=== PATIENT | male | born 2000 | race Caucasian/White ===

== ENCOUNTER 2021-07-22 17:39 | Emergency (ER) | payer SELFPAY ==
[2021-07-22 18:52] VITALS: BP 137/91; PULSE 77; RESP 18; TEMP 36.6; O2SAT 99; BMI 24.3
[2021-07-22 18:59] VITALS: BP 137/91; PULSE 77; RESP 18; TEMP 36.6
--- NOTE | 2021-07-22 19:17 | HMH.EDUTC ---
[facility] [place] Clinical Impression: Exposure to COVID-19 virus Disposition: Home, Self-Care Condition on Discharge: Good Instructions: DI for COVID-19 (Suspected or Confirmed ), Preventing the Spread of Coronavirus Discharge Instructions Additional Instructions: Drink plenty of fluids. Take tylenol or ibuprofen for pain or fever. Follow up with your regular doctor. GO TO THE ER FOR ANY WORSENING SYMPTOMS Quarantine until you know the results of your covid-19 test. If it is positive, the health department should call you and give you further instructions about your length of Quarantine and other things. Notify your school or workplace of your results and follow their instructions regarding return to work/school. Referrals: Provider,Referral, [Primary Care Provider] - Forms: Work/School Release Time of Disposition: 19:21 Medical Decision Making - Medical Records Medical records reviewed: No: I reviewed the patient's medical records. - Allan Inquiry Pt receiving controlled substance: No Vital Signs: 07/22/21 18:52 07/22/21 18:59 Temperature 98 F 98 F Temperature Source Oral Pulse Rate 77 Pulse Rate [Left] 77 Respiratory Rate 18 18 Blood Pressure 137/91 H Blood Pressure [Right Arm] 137/91 H Blood Pressure Mean [Right Arm] 106 02 Sat by Pulse Oximetry 99 Orders (Tests/Meds): ORDERS Category Date Time Status Covid-19 Nasal PCR ([facility]) Routine Lab 07/22/21 18:45 Received [facility] [place] H[place] - General Stated complaint: covid test Time Seen by Provider: 07/22/21 19:18 Mode of Arrival: Ambulatory Source of Information: Patient Description of Symptoms (Recalled from Triage Doc. by RN): covid test. asymptomatic. HEENT Symptoms (Recalled from RN notes): No Resp Symptoms (Recalled from RN notes): No Skin Symptoms (Recalled from RN notes): No MS Symptoms (Recalled from RN notes): No Functional Status (Recalled from RN notes): na - History of Present Illness Provider Complaint: He states that he has been exposed to covid-19 by his [id number] having it and living with him. He denies any specific symptoms, but he states that he hasn't felt good since yesterday. - Worker's Comp Is this a Worker's Comp case?: No [facility] History - Hepatitis A Screen Drug use history?: No High risk sexual behaviors?: No History of sexually transmitted infection?: No Currently employed?: No Childcare worker?: No Do you have indoor plumbing?: Yes Do you have electricity?: Yes Attestation statement:: This patient has been screened for Hepatitis A risk factors. I have reviewed the patient's past medical history: Yes ROS Obtained: Yes All systems reviewed & no additional complaints - Constitutional Constitutional: Reports system reviewed and no additional complaints, except as docu - Eyes Eyes: Reports system reviewed and no additional complaints, except as docu - ENT Ears, Nose, Mouth, and Throat: Reports system reviewed and no additional complaints, except as docu - Cardiovascular Cardiovascular: Reports system reviewed and no additional complaints, except as docu - Respiratory Respiratory: Reports system reviewed and no additional complaints, except as docu - Gastrointestinal Gastrointestingal: Reports: system reviewed and no additional complaints, except as docu Physical Exam - General General appearance: alert, in no apparent distress - Head Head exam: atraumatic, normocephalic, normal inspection - Eye Eye exam: Present: normal appearance, PERRL, EOMI - ENT ENT exam: Present: normal exam, normal oropharynx, mucous membranes moist, TM's normal bilaterally, normal external ear exam - Neck Neck exam: Present: normal inspection, full ROM, trachea midline. Absent: meningismus, lymphadenopathy - Chest Chest inspection: Present: normal inspection, symmetric chest wall rise. Absent: tenderness - Respiratory Respiratory exam: Present: normal lung sounds bilaterally.
--- NOTE | 2021-07-23 19:07 | PC.NURSE ---
patient called for results COVID results, patient was negative
== END 2021-07-22 19:48 | disposition home or self-care (01) ==
PROVIDERS: Emergency Provider Nurse Practitioner Family
DX: Z20.822 Contact with and (suspected) exposure to COVID-19 (principal)
CPT/HCPCS: 99202; G0463; U0003

== ENCOUNTER 2022-02-24 14:40 | Emergency (ER) | payer SELFPAY ==
[2022-02-24 14:47] VITALS: BP 161/100; PULSE 98; RESP 16; TEMP 36.6; O2SAT 100; BMI 24.2
--- NOTE | 2022-02-24 14:51 | CT_ITS ---
FINAL REPORT TECHNIQUE: After the administration of intravenous contrast, axial images were obtained through the abdomen and pelvis by computed tomography. The study was performed with techniques to keep radiation dose as low as reasonably achievable, (ALARA). Individual dose reduction techniques using automated exposure control or adjustment of mA and/or kV according to the patient's size were employed. CLINICAL HISTORY: rlq abd pain FINDINGS: Abdomen: The lung bases are clear. The liver parenchyma is homogeneous. The gallbladder is present. The spleen, pancreas, adrenals and kidneys appear unremarkable. The aorta is normal in caliber. There is no free fluid or adenopathy. There are multiple fluid-filled loops of small bowel measuring at the upper limits of normal. There is no definite obstructive pattern. Pelvis: The appendix is normal. The urinary bladder is unremarkable. There is no free fluid or adenopathy. IMPRESSION: Normal appendix. Fluid filled small bowel loops measuring at the upper limits of normal without a definite obstructive pattern. Reviewed, Interpreted and Dictated by Donnell Aggarwal MD Transcribed by Kurt Andrea Authenticated by Donnell Aggarwal MD on 02/24/2022 04:11:39 PM [facility]
--- NOTE | 2022-02-24 14:53 | HMH.EDGENADL ---
ED Disposition Clinical Impression: Abdominal cramps Diarrhea Qualifiers: Diarrhea type: unspecified type Qualified Code(s): R19.7 - Diarrhea, unspecified Disposition: Home, Self-Care Condition on Discharge: Good Instructions: Diarrhea, Acute Abdominal Pain Prescriptions: Dicyclomine HCl [Bentyl 10mg capsule] 10 mg PO TID PRN #15 cap PRN Reason: Cramping Transmission Status: Received by [facility] #[id number] Referrals: Jim Aranda [Primary Care Provider] - - Critical Care Critical Care Time: No Attestation: On 02/24/22, the high probability of a clinically significant, sudden or life threatening deterioration of the following system(s) required my full and direct attention, intervention and personal management. The time I documented below is in addition to time spent performing reported procedures but includes the following listed in this critical care notation. Medical Decision Making - Medical Records Medical records reviewed: Yes: I reviewed the patient's medical records. - Allan Inquiry Pt receiving controlled substance: No Vital Signs: 02/24/22 14:47 02/24/22 16:30 Temperature 98 F 98 F Temperature Source Oral Oral Pulse Rate 82 Pulse Rate [Left Radial] 98 H Respiratory Rate 16 18 Blood Pressure 140/86 Blood Pressure [Right Arm] 161/100 H Blood Pressure Mean [Right Arm] 120 Blood Pressure Source Automatic Cuff Blood Pressure Position Sitting 02 Sat by Pulse Oximetry 100 Oxygen Delivery Method Room Air Room Air - Lab Data Lab Results 02/24/22 15:00: WBC 9.3, RBC 6.00, Hgb 17.9, Hct 53.8 H, MCV 89.7, MCH 29.9, MCHC 33.3, RDW 13.7, Plt Count 241, MPV 8.2, Neut % (Auto) 88.8 H, Lymph % (Auto) 4.6 L, [place] % (Auto) 5.0, Eos % (Auto) 1.3, Baso % (Auto) 0.3, Neut # (Auto) 8.2 H, Lymph # (Auto) 0.4 L, [place] # (Auto) 0.5, Eos # (Auto) 0.1, Baso # (Auto) 0.0, Total Counted 100, Neutrophils % (Manual) 89 H, Lymphocytes % (Manual) 8 L, Monocytes % (Manual) 3, Platelet Estimate Normal, RBC Morphology Normal 02/24/22 15:00: Sodium 140, Potassium 4.7, Chloride 105, Carbon Dioxide 28, Anion Gap 11.7, BUN 21 H, Creatinine 0.80, Estimated Creat Clear 139, Estimated GFR 121, Est GFR ( Amer) 146, Glucose 88, Calcium 8.8, Total Bilirubin 0.5, AST 32, ALT 32, Alkaline Phosphatase 91, Total Protein 7.5, Albumin 4.4, Globulin 3.1, Albumin/Globulin Ratio 1.4 Result diagrams: 02/24/22 15:00 02/24/22 15:00 Orders (Tests/Meds): ED MEDICATIONS Discontinued Medications Generic Name Dose Route Start Last Admin Trade Name Freq PRN Reason Stop Dose Admin Dicyclomine HCl 20 mg 02/24/22 16:18 02/24/22 16:21 Dicyclomine 10mg Capsule PO 02/24/22 16:19 20 mg ONCE ONE Administration Hydromorphone HCl 1 mg 02/24/22 19:02 02/24/22 16:26 Hydromorphone 2mg/Ml Syringe IV 02/24/22 19:03 1 mg ONCE ONE Administration Sodium Chloride 1,000 mls @ 999 mls/hr 02/24/22 15:00 02/24/22 15:18 Sod Chlor 0.9% 1000ml Bag IV 02/24/22 16:00 999 mls/hr .Q1H1M JESSICA Administration Iopamidol 75 ml 02/24/22 15:13 02/24/22 15:14 Iopamidol-370 (76%);100ml Bottle IV 02/24/22 15:14 75 ml ONCE ONE Administration Morphine Sulfate 4 mg 02/24/22 14:52 02/24/22 15:04 Morphine 4mg/Ml Syringe IV 02/24/22 14:53 4 mg ONCE ONE Administration Ondansetron HCl 8 mg 02/24/22 14:52 02/24/22 15:03 Ondansetron 4mg/2ml Vial IV 02/24/22 14:53 8 mg ONCE ONE Administration Sodium Chloride 10 ml 02/24/22 15:13 02/24/22 15:14 Sodium Chloride 0.9% 10ml Syr (Rad Only) IV 02/24/22 15:14 10 ml ONCE ONE Administration Medical Decision Narrative: reeval, appears well, abd soft, ok with plan to rx and f/u if worse General Adult HPI - General Chief complaint: PAIN Stated complaint: abd pains Time Seen by Provider: 02/24/22 14:45 Mode of Arrival: Ambulatory ([id number]) Limitations: No Limitations Description of Symptoms (Recalled from ER Triage Doc. by RN): pt
[2022-02-24 15:20] LABS: Basophils % 0.3 % (0.1-2.0); Eosinophils # 0.1 K/mm3 (0.0-0.4); Eosinophils % 1.3 % (0.1-12.0); Hematocrit 53.8 % (42.0-52.0); Hemoglobin 17.9 g/dL (14.1-18.0); Lymphocytes # 0.4 K/mm3 (0.7-4.5); Lymphocytes % 4.6 % (10-50); Mean Corpuscular HGB Conc 33.3 g/dL (31.8-35.4); Mean Corpuscular Hemoglobin 29.9 pg (27.0-31.2); Mean Corpuscular Volume 89.7 fl (80-94); Mean Platelet Volume 8.2 fl (7.4-10.4); Monocytes # 0.5 K/mm3 (0.1-1.0); Neutrophils # 8.2 K/mm3 (1.8-7.8); Neutrophils % 88.8 % (37.0-80.0); Platelet Count 241 K/mm3 (142-424); Red Cell Distribution Width 13.7 % (11.5-17.5); White Blood Count 9.3 K/mm3 (4.8-10.8)
[2022-02-24 15:24] LABS: Chloride 105 mmol/L (98-107); MANUAL DIFFERENTIAL MANUAL DIFFERENTIAL (MANUAL DIFF); Potassium 4.7 mmoL/L (3.5-5.1); Sodium 140 mmol/L (136-145)
[2022-02-24 15:26] LABS: Blood Urea Nitrogen 21 mg/dl (9-20); Creatinine Clearance Estimated 139 mL/min (50-200); Estimated Glomerular Filt Rate 121 ml/min (>60); GFR (African American) 146 ML/MIN (>60)
[2022-02-24 15:27] LABS: Alanine Aminotransferase 32 U/L (12-78); Albumin Level 4.4 g/dl (3.5-5.0); Albumin/Globulin Ratio 1.4 (1.1-1.8); Alkaline Phosphatase 91 U/L (38-126); Anion Gap 11.7 mEq/L (5-15); Aspartate Amino Transferase 32 U/L (17-59); Bilirubin,Total 0.5 mg/dl (0.2-1.3); Calcium 8.8 mg/dl (8.4-10.2); Carbon Dioxide 28 mmol/L (22.0-30.0); Globulin 3.1 g/dL (1.3-3.2); Glucose 88 mg/dl (74-100); Total Protein,Serum 7.5 g/dl (6.3-8.2)
[2022-02-24 16:09] LABS: Lymphocytes % 8 % (10-50); Monocytes % 3 % (2-9); Neutrophils % 89 % (42-76); Platelet Estimate Normal; RBC Morphology Normal; Total Cells Counted 100
[2022-02-24 16:30] VITALS: BP 140/86; PULSE 82; RESP 18; TEMP 36.6; O2SAT 99
== END 2022-02-24 16:32 | disposition home or self-care (01) ==
PROVIDERS: Emergency Provider Emergency Medicine; PCP Internal Medicine
DX: R19.7 Diarrhea, unspecified (principal)
CPT/HCPCS: 74177; 80053; 85007; 85025; 96365; 96375; 99284; J2405; Q9967

== ENCOUNTER 2022-10-19 10:33 | Emergency (ER) | payer OTHER, SELFPAY ==
[2022-10-19 12:35] VITALS: BP 116/86; PULSE 71; RESP 18; TEMP 37; O2SAT 98; BMI 25.9
--- NOTE | 2022-10-19 12:58 | EXP.UTC ---
Discharge Plan Disposition Patient Disposition: Home, Self-Care Condition: Good Prescriptions Prescriptions: New ibuprofen 600 mg tablet 600 mg PO Q6HP PRN (Reason: Moderate Pain) Qty: 20 0RF Referrals Follow up/Referrals: Jim Aranda [Primary Care Provider] - See instructions Activity Restrictions/Add. Instructions Additional Instructions/Restrictions: Take medication as prescribed Follow up with Dentist Call today may take you a couple weeks to get in Use dental balls as advised in the [facility] Return if needed Straight to ER if any life threatening symptoms Clinical Impressions Clinical Impression: Dental infection Instructions Patient Instructions: DI for Dental Pain Discharge ED Provider: Angela Ornelas [facility] HPI General Stated complaint: Mouth pain, possible tooth infection Mode of Arrival: Ambulatory Source of Information: Patient Limitations: No Limitations Time Seen by Provider: 10/19/22 12:59 Description of Symptoms (Recalled from Triage Doc. by RN): PATIENT C/O TOOTH ABSCESS TO RIGHT SIDE X 4 DAYS HEENT Symptoms (Recalled from RN notes): Yes Resp Symptoms (Recalled from RN notes): No Skin Symptoms (Recalled from RN notes): No MS Symptoms (Recalled from RN notes): No Functional Status (Recalled from RN notes): WNL History of Present Illness Provider Complaint: Patient states that he has been having pain in his right upper gum area for about 4 days States that he was seen at [facility] and started on antibiotics but still having pain and wanted to see if there was something that he could get for the pain Related Data Previous Rx's Medication Instructions Recorded ibuprofen 600 mg tablet 600 mg PO Q6HP PRN Moderate Pain 10/19/22 #20 tabs Allergies Allergy/AdvReac Type Severity Reaction Status Date / Time No Known Allergies Allergy Verified 02/24/22 14:53 Worker's Comp Is this a Worker's Comp case?: No [facility] Disclaimer: The information contained in this section may have been updated after the patient was seen, as this information can be updated by other users. Medical History (Updated 10/19/22 @ 13:03 by Angela Ornelas APRN) No significant past medical history Social History (Updated 10/19/22 @ 12:52 by Sugey Thompson RN) Smoking Status: Current every day smoker alcohol intake: never current occupational status: other Travel in the last 8 weeks: None ROS Obtained: Yes All systems reviewed & no additional complaints except as documented and Yes Systems reviewed as appropriate & no additional complaints except as documented Constitutional Constitutional: Reports system reviewed and no additional complaints, except as documented and Reports as per HPI ENT Ears, Nose, Mouth, and Throat: Reports system reviewed and no additional complaints, except as documented, Reports as per HPI and Reports dental pain Cardiovascular Cardiovascular: Reports system reviewed and no additional complaints, except as documented and Reports as per HPI Respiratory Respiratory: Reports system reviewed and no additional complaints, except as documented and Reports as per HPI Physical Exam General General appearance: alert and in no apparent distress Expanded ENT Exam TM/Canal exam: Right TM: erythema Teeth exam: Present dental caries and gingival swelling (mild right upper gumline) Respiratory Respiratory exam: Present normal lung sounds bilaterally; Absent respiratory distress or wheezes Cardiovascular Cardiovascular exam: Present regular rate, normal rhythm and normal heart sounds Neurological Exam Neurological exam: Present alert, oriented X3 and normal gait Medical Decision Making Allan Inquiry Pt receiving controlled substance: No Allan was queried for this patient: No Vital Signs: 10/19/22 12:35 Temperature 98.6 F Temperature Source Oral Pulse Rate [Right Brachial] 71 Respiratory Rate 18 Blood Pressure [Right Arm] 116/86 Blood Pressure Mean [Right Arm]
[2022-10-19 13:08] VITALS: BP 116/86; PULSE 71; RESP 18; TEMP 37; O2SAT 98
== END 2022-10-19 13:11 | disposition home or self-care (01) ==
PROVIDERS: Emergency Provider Nurse Practitioner; PCP Internal Medicine
DX: K04.7 Periapical abscess without sinus (principal)
CPT/HCPCS: 99212; G0463

== ENCOUNTER 2024-10-05 21:35 | Emergency (ER) | payer MEDICAID, SELFPAY ==
[2024-10-05 21:36] VITALS: BP 152/91; PULSE 64; RESP 20; TEMP 36.8; O2SAT 98; BMI 23.5
--- NOTE | 2024-10-05 21:37 | ED_ITS ---
<Statement entered by Britta Nicole DO - 10/05/24 22:56> I was consulted by the ETHAN, and we discussed the complexity of the problems being addressed. I approved the treatment and management plan for this patient's care in the emergency department, thus performing a substantive portion of the medical decision making. Britta Nicole DO Discharge Plan Disposition Patient Disposition: Home, Self-Care Condition: Good Prescriptions Prescriptions: New amoxicillin-pot clavulanate 875-125 mg tablet 1 tab PO BID Qty: 20 0RF No Action ibuprofen 600 mg tablet 600 mg PO Q6HP PRN (Reason: Moderate Pain) Qty: 20 0RF Referrals Follow up/Referrals: Provider,Referral, MD [Primary Care Provider] - See instructions Activity Restrictions/Add. Instructions Additional Instructions/Restrictions: Please take antibiotics until they are gone. You will need to see dentistry as soon as possible next week. If you have increasing fever headache or drainage return to the emergency department. Clinical Impressions Clinical Impression: Dental infection Print Language Print Language: Georgian Discharge ED Provider: Britta Nicole General Adult HPI General Chief complaint: Dental/Oral Stated complaint: dental pain Time Seen by Provider: 10/05/24 21:37 History of Present Illness HPI narrative: Patient presents for evaluation of dental pain. Patient has had a dental infection/painful tooth left one of his right upper premolars for at least 2 months . However last 24 hours has become more painful and he has had more swelling in the area. He denies fever headache nausea vomiting drainage. Related Data Previous Rx's ?Medication ?Instructions ?Recorded ibuprofen 600 mg tablet 600 mg PO Q6HP PRN Moderate Pain 10/19/22 #20 tabs amoxicillin 875 mg-potassium 1 tab PO BID #20 tabs 10/05/24 clavulanate 125 mg tablet Allergies Allergy/AdvReac Type Severity Reaction Status Date / Time No Known Allergies Allergy Verified 02/24/22 14:[address] [facility] Disclaimer: The information contained in this section may have been updated after the patient was seen, as this information can be updated by other users. Medical History (Updated 10/05/24 @ 21:48 by VIKTOR Barnes) No significant past medical history Social History (Updated 10/19/22 @ 13:03 by Angela Ornelas APRN) Smoking Status: Current every day smoker alcohol intake: never current occupational status: other Other Medical History Have you received the Flu Vaccine for this season: No Have you received the Pneumonia Vaccine: No ROS Obtained: Yes Systems reviewed as appropriate & no additional complaints except as documented Physical Exam General General appearance: alert and in no apparent distress Respiratory Respiratory exam: Present normal lung sounds bilaterally Cardiovascular Cardiovascular exam: Present regular rate Neurological Exam Neurological exam: Present alert and oriented X3 Medical Decision Making Medical Records Screening: Per USPSTF and CDC recommendations, given the prevalence of disease in our region, it is our hospital?s policy to screen for HIV and viral Hepatitis for all patients aged 18 and over and those with ongoing risk factors. Allan Inquiry Pt receiving controlled substance: No Vital Signs: 10/05/24 21:36 Temperature 98.2 F Temperature Source Oral Pulse Rate [Apical] 64 Respiratory Rate 20 Blood Pressure [Right Arm] 152/91 H Blood Pressure Mean [Right Arm] 111 02 Sat by Pulse Oximetry 98 Oxygen Delivery Method Room Air Orders (Tests/Meds): ED MEDICATIONS Discontinued Medications Generic Name Dose Route Start Last Admin Trade Name Freq PRN Reason Stop Dose Admin Amoxicillin/Clavulanate Potassium 1 each 10/05/24 21:44 Amoxicillin/Clavulanate Potassium 875/125mg Tablet PO 10/05/24 21:45 ONCE ONE Lidocaine HCl 15 ml 10/05/24 21:44 Lidocaine 2% Viscous Yuki 15ml Udc PO 10/05/24 21:45 ONCE ONE Medical Decision Narrative: In summary patient is a 23-year-old male who presents to the emergency department for evaluation of dentalgia. Patient is hemodynamically stable upon arrival, afebrile. Physical exam is remarkable for dental caries in the right sided first premolar. There is no gingival irritation or swelling. Patient has slight fullness of the right cheek but there is no fluctuance or drainage noted. There is no periorbital edema or swelling. Differential diagnosis includes cellulitis versus dental infection etc. initial workup was considered including labs and imaging however patient has no fluctuance or any other red flag signs for deep space abscess.. Initial interventions include dental balls and Augmentin. Given this patient is appropriate for discharge with prescription for the remainder of the Augmentin, instructions to follow-up with dentist as soon as possible for definitive management and strict return precautions. Critical Care Critical Care Time Critical Care Time: No
--- OUTSIDE RECORDS SUMMARY | 2024-10-05 21:44 | XMS_ITS | Encounter Summary ---
Author Organization Healthcare Address [address] [place] [address] Care Team Providers Care Group Fitness Manager Name Role Phone Jim Aranda MD Primary Care Provider [phone] Encounter Details Date Type Department Care Team (Latest Contact Info) Description 10/26/2022 Travel Social History Tobacco Use Types Packs/Day Years Used Date Smoking Tobacco: Never Assessed Sex and Gender Information Value Date Recorded Sex Assigned at Not on file Legal Sex Male 8:47 PM EDT Gender Identity Not on file Sexual Orientation Not on file COVID-19 Exposure Response Date Recorded In the last 10 days, have yo u been in contact with someone who was confirmed or suspected to have Coronavirus/COVID-19? No / Unsure 10/26/2022 9:40 PM EST documented as of this encounter Plan of Treatment Not on file documented as of this encounter Visit Diagnoses Not on filedocumented in this encounter Care Teams Group Fitness Manager Relationship Specialty Start Date End Date Jim Aranda MD [address] [place] [address] PCP - General 03/28/21 documented as of this encounter
--- OUTSIDE RECORDS SUMMARY | 2024-10-05 21:44 | XMS_ITS | Encounter Summary ---
Author Organization Healthcare Address [address] [place], [place] [id number] Care Team Providers Care Press Assistant Name Role Phone Jim Aranda MD Primary Care Provider [phone] Encounter Details Date Type Department Care Team (Late st Contact Info) Description 10/30/2022 1:00 PM EST Office Visit [facility] [address] [place], [place] [phone] Sanjana Martinez, MEET [address] [place], [place] [id number] Social History Tobacco Use Types Packs/Day Years [...] suspected to have Coronavirus/COVID-19? No / Unsure 10/29/2022 2:43 PM EST documented as of this encounter Last Filed Vital Signs Vital Sign Reading Time Taken Comments Blood Pressure 161/97 10/30/2022 1:17 PM EST Pulse 98 10/30/2022 1:17 PM EST Temperature - - Respiratory Rate - - Oxygen Saturation - - Inhaled Oxygen Concentration - - Weight 67.9 kg (149 lb 11.1 oz) 10/30/2022 1:04 PM EST Height 167.6 cm (5' 6 ) 10/30/2022 1:04 PM EST Body Mass Index 24.16 10/30/2022 1:04 PM EST documented in this encounter Miscellaneous Notes * Progress Notes - Sanjana Pérez DMD - 10/30/2022 1:00 PM EST OMS OPERATIVE NOTE Rogelio Castellano [id number] Patient presents to clinic for scheduled surgery -PMH and R/B/A's reviewed, informed consent updated. -Monitors: NIBP, ECG, pulse oximetry, etCO2 -Administered supplemental O2 via nasal cannula. -Vitals: taken pre and post op -A timeout was performed. -Pre-op Diagnosis: Carious teeth # 32 with associated abscess -Post-op Diagnosis: Same -Surgeon: Sanjana Pérez DMD -Procedure: See Below -Anesthesia: N20 DESCRIPTION OF PROCEDURE Immediate pre-incision time-out performed. O2 admin for 5 min preop. N20 titrated up to 50%/ 50% o2. Local anesthesia achieved 3 carps of 2% Lidocaine w/1:100,000 epi Throat screen was placed. [id number] - Extraction of Erupted Teeth # 32 - Using elevators and forceps as indicated, tooth was extracted in total and confirmed. Curettage performed to remove granulation tissue. Sig purulence drained from ext site. Hemostats used on buccal of #32 under periosteum. Surgical site copiously irrigatedwith NS. No sutures indicated. Hemostasis achieved with gauze The patient's airway was never threatened and patient denied any shortness of breath. 5 min of 100%o2 administered. Pt was hemodynamically stable and tolerated the procedure well. Pt reported felt normal. Patient was discharged after the patient met discharge criteria MAS-10. POST-OP Post-operative instructions were given orally and written to patient's escort. Prescriptions: -Peridex 0.12% -OTC IBU 800 mg w/ 500 mg tylenol q6h prn. -finish previously prescribed ABX eKASPER performed and reviewed and potential narcotics abuse discussed with patient prior to prescribing narcotic medication. Follow-Up: F/U: PRN NV: iv sed w/ removal of #1, #15, #16, #17 per other note on 10/29/22 Sanjana Pérez DMD tile edger PGY-1 [facility] Cosigned by Luca Padilla DMD at 11/03/2022 9:30 AM EST Associated attestation - Trey Padilla DMD - 11/03/2022 9:30 AM EST I was present during all critical and figueroa portions of the procedure(s) and immediately available [facility] services the entire duration. See resident note for details. documented in this encounter Plan of Treatment Not on file documented as of this encounter Visit Diagnoses Not on filedocumented in this encounter Care Teams Press Assistant Relationship Specialty Start Date End Date Jim Aranda MD [address] [place], [place] [phone] PCP - General 03/28/21 documented as of this encounter
--- OUTSIDE RECORDS SUMMARY | 2024-10-05 21:44 | XMS_ITS | Encounter Summary ---
Author Organization Healthcare Address [address] [place] [address] Care Team Providers Care Supervisor Inspection Department Name Role Phone Jim Aranda MD Primary Care Provider [phone] Encounter Details Date Type Department Care Team (Late st Contact Info) Description 12/08/2022 Telephone [facility] [address] [place] [phone] Woody Du MD [address] [place], [place] [phone] Social History Tobacco Use Types Packs/Day Years Used Date Smoking Tobacco: Never Assessed Sex and Gender Information Value Date Recorded Sex Assigned at Not on file Legal Sex Male 8:47 PM EDT Gender Identity Not on file Sexual Orientation Not on file documented as of this encounter Miscellaneous Notes * Telephone Encounter - Erinn Davis - 12/08/2022 10:05 AM EST Tried to contact pt to move Fe surgery to a sooner date but no answer or vmoption/kw documented in this encounter Plan of Treatment Not on file documented as of this encounter Visit Diagnoses Not on filedocumented in this encounter Care Teams Supervisor Inspection Department Relationship Specialty Start Date End Date Jim Aranda MD [address] [place] [address] PCP - General 03/28/21 documented as of this encounter
--- OUTSIDE RECORDS SUMMARY | 2024-10-05 21:44 | XMS_ITS | Encounter Summary ---
Author Organization Healthcare Address [address] [place] [address] Care Team Providers Care Senior Software Engineer Analytics Name Role Phone Jim Aranda MD Primary Care Provider [phone] Encounter Details Date Type Department Care Team (Latest Contact Info) Description 10/29/2022 Travel Social History Tobacco Use Types Packs/Day [...] on filedocumented in this encounter Care Teams Senior Software Engineer Analytics Relationship Specialty Start Date End Date Jim Aranda MD [address] [place] [address] PCP - General 03/28/21 documented as of this encounter
--- OUTSIDE RECORDS SUMMARY | 2024-10-05 21:44 | XMS_ITS | Encounter Summary ---
Author Organization Healthcare Address [address] [place] [id number] Care Team Providers Care Seafood Specialist Name Role Phone Jim Aranda MD Primary Care Provider [phone] Reason for Referral * Consultation (Routine) - Closed Specialty Diagnoses / Procedures Referred By Contac t Referred To Contact Oral Surgery Diagnoses Pain, dental Jono Stoner PA [address] [place] [address] Phone: tel: fax: [facility] [address] [place] [address] [address] [place] [address] Phone: tel: Referral ID Status Reason Start Date Expiration Date V isits Requested Visits Authorized [id number] Closed Specialty Services Required 10/27/2022 04/27/2024 1 1 Reason for Visit * Reason Comments Dental Pain Encounter Details Date Type Department Care Team (Late st Contact Info) Description 10/26/2022 10:02 PM EST - 10/27/2022 6:06 AM EST Emergency [facility] [address] [place] [address] Chantel Gilmore MD [address] [place] [address] Pain, dental (Primary Dx); Dental abscess; Tooth pain Discharge Disposition: Home or Self Care Social History Tobacco Use Types Packs/Day Years [...] Sign Reading Time Taken Comments Blood Pressure 137/79 10/27/2022 6:04 AM EST Pulse 78 10/27/2022 6:04 AM EST Temperature 36.9 ??C (98.5 ??F) 10/27/2022 6:04 AM ES T Respiratory Rate 18 10/27/2022 6:04 AM EST Oxygen Saturation 98% 10/27/2022 6:04 AM EST Inhaled Oxygen Concentration - - Weight - - Height - - Body Mass Index - - documented in this encounter Discharge Instructions * Discharge Instructions* Jono Stoner PA - 10/27/2022 5:43 AM EST Freeland as needed for pain Also ibuprofen Do not mix norco with tylneol Follow up with [facility] for surgical evaluation documented in this encounter Medications at Time of Discharge HYDROcodone-acet aminophen (Freeland) 5-325 MG tablet Take 1 tablet by mouth every 4 (four) hours if needed for severe pain. 18 tablet 10/27/2022 clindamycin (Cleocin) 150 MG capsule Take 2 capsules (300 mg total) by mouth 3 (three) times a day for 7 days. 42 capsule 10/27/2022 11/03/2022 documented as of this encounter Miscellaneous Notes * Consults - Fortunato Najera DMD - 10/27/2022 5:34 AM ESTAssociated Order(s): Consult to Dentistry Consult to Dentistry Consult performed by: Fortunato Najera DMD Consult ordered by: VIKTOR Guerrero Reason For Consult Right side dental pain History Of Present Illness Rogelio Castellano is a 21 y.o. male presenting with jaw pain on the lower right side. Pt describes the pain 100/10, but that morphine does provide mild relief. Pt is unable to open more than 1cm. Pt reports taking amoxicillin for two weeks prescribe by outside dentist. Past Medical History He has no past medical history on file. Surgical History He has no past surgical history on file. Family History No family history on file. Social History He has no history on file for tobacco use, alcohol use, and drug use. Allergies Patient has no known allergies. Medications No current facility-administered medications for this encounter. No current outpatient medications on file. Last Recorded Vitals Blood pressure (!) 138/95, pulse 88, temperature 37.3 ??C (99.1 ??F), resp. rate 22, SpO2 100 %. Relevant Results Pt presents with right side dental pain associated with decayed wisdom tooth #32. This tooth is fully erupted and in occlusion. Face CT interpretation mentions a subperiosteal abscess related to lower right terminal molar. Can also see on CT that #32 has a large coronal lesion, unable to visualize intra-orally due to limited opening. Clinical exam reveals very minimal if any vestibular swelling. No sinus tract, no purulence upon palpation. Pt reports that he has been taking amoxicillin for two weeks prescribed from outside dentist. Recs- removal of all remaining wisdom teeth, possibly more teeth, unable to determine due to limited opening. Begin course of clindamycin upon discharge. Proc- Attempted dental block with 68 mg 2% Lidocaine w 34 mcg Epi, which patient did report moderate relief to. Unable to reach appropriate anatomy for full effectiveness of block, but did achieve enough anesthesia to perform a vestibular incision, contact bone, spread and irrigate with sterile water. No purulence expelled. No change in patients symptoms. Will follow up personally with [facility] to discuss a possible appointment for extractions. Cosigned by Estefany Ruth DMD at 10/27/2022 7:38 AM EST * ED Provider Notes - Bernie Lang PA - 10/26/2022 9:38 PM EST HPI Chief Complaint Patient presents with Dental Pain PIT Note Rogelio Castellano is a 21 y.o. male who presents to ED with dental pain. Pt reports severe right mouth pain. Pt reports being unable to get an appointment with the dental clinic until December but states that he cannot wait until then because of the pain. Pt reports jaw pain as well. Pt states that he cannot open his mouth very much. Pt reports taking more ibuprofen and tylenol than he is supposed to due to the pain. Patient denies fever, chills, cough, chest pain, shortness of breath, nausea, vomiting, and diarrhea. Date/Time: 10/26/2022/9:49 PM Entered by Mago Pope acting as scribe for Dr. Gilmore. Scribe Attestation: This note was dictated to me, Mago Pope, acting as a scribe for Dr. Gilmore. Attending Attestation: The documentation was recorded by Mago Pope acting as scribe in mypresence at the time of the encounter and accurately reflects the service I personally performed. 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 No past surgical history on file. No family history on file. Allergies: No Known Allergies Review of Systems Review of Systems Constitutional: Negative for chills, fatigue and fever. HENT: Positive for dental problem. Negative for congestion, ear pain, rhinorrhea and sore throat. Eyes: Negative for pain, discharge and visual disturbance. Respiratory: Negative for cough, chest tightness and shortness of breath. Cardiovascular: Negative for chest pain and palpitations. Gastrointestinal: Negative for abdominal pain, diarrhea, nausea and vomiting. Genitourinary: Negative for dysuria, frequency and hematuria. Musculoskeletal: Negative for arthralgias and back pain. Skin: Negative for color change and rash. Neurological: Negative for seizures and syncope. All other systems reviewed and are negative. Physical Exam ED Triage Vitals [10/26/22 2140] Temp Heart Rate Resp BP 37.2 ??C (98.9 ??F) 95 18 (!) 157/109 SpO2 Temp Source Heart Rate Source Patient Position 99 % Oral -- -- Physical Exam Vitals and nursing note reviewed. Constitutional: General: He is not in acute distress. Appearance: Normal appearance. He is well-developed. He is not ill-appearing, toxic-appearing or diaphoretic. HENT: Head: Normocephalic and atraumatic. Jaw: Trismus and tenderness present. Salivary Glands: Right salivary gland is not diffusely enlarged or tender. Left salivary gland is not diffusely enlarged or tender. Comments: Initially with Dr. Gilmoer, patient with significant trismus that he states is due to pain. Unable to open jaw more than 1 cm at triage. Right Ear: External ear normal. Left Ear: External ear normal. Nose: Nose normal. No rhinorrhea. Mouth/Throat: Mouth: Mucous membranes are moist. Pharynx: Oropharynx is clear. Eyes: General: No scleral icterus. Right eye: No discharge. Left eye: No discharge. Extraocular Movements: Extraocular movements intact. Conjunctiva/sclera: Conjunctivae normal. Pupils: Pupils are equal, round, and reactive to light. Cardiovascular: Comments: Well-perfused. Non-cyanotic. Pulmonary: Effort: Pulmonary effort is normal. No accessory muscle usage or respiratory distress. Breath sounds: No stridor. Abdominal: General: Abdomen is flat. There is no distension. Tenderness: There is no abdominal tenderness. Musculoskeletal: General: Normal range of motion. Cervical back: Normal range of motion. No rigidity. Right lower leg: No edema. Left lower leg: No edema. Skin: General: Skin is warm and dry. Coloration: Skin is not jaundiced. Neurological: General: No focal deficit present. Mental Status: He is alert and oriented to person, place, and time. GCS: GCS eye subscore is 4. GCS verbal subscore is 5. GCS motor subscore is 6. Gait: Gait is intact. Psychiatric: Attention and Perception: Attention normal. Mood and Affect: Mood and affect normal. Speech: Speech normal. Behavior: Behavior normal. Behavior is cooperative. MDM Amount and/or Complexity of Data Reviewed Clinical lab tests: reviewed ED COURSE DDX: Chronic dental pain. Hardy tooth impaction. Dental abscess. Labs: Labs Reviewed COMPREHENSIVE METABOLIC PANEL, PLASMA - Abnormal Result Value Glucose, Plasma 111 (*) BUN, Plasma 15 Creatinine, Plasma 1.02 BUN/Creatinine Ratio 15 Sodium, Plasma 141 Potassium, Plasma 3.8 Chloride, Plasma 94 (*) CO2, Plasma 30 (*) Anion Gap 17 (*) Total Calcium, Plasma 10.2 Total Protein 8.9 (*) Albumin, Plasma 4.5 AST, Plasma 14 ALT, Plasma 20 Alkaline Phosphatase, Plasma 107 Total Bilirubin, Plasma 0.5 eGFRcr 106.6 CBC WITH AUTO DIFFERENTIAL - Abnormal WBC Count 12.39 (*) RBC Count 5.64 HGB 16.4 HCT 48.7 Platelet Count 306 MCV 86 MCH 29.1 MCHC 33.7 RDW 12.0 MPV 9.4 nRBC 0.0 Differential Type Automated Neutrophils % 74.0 Lymphocytes % 15.0 Monocytes % 10.0 Eosinophils % 1.0 Basophils % 0.0 Immature Granulocytes % 0.0 Neutrophils Absolute 9.17 (*) Lymphocytes Absolute 1.88 Monocytes Absolute 1.19 (*) Eosinophils Absolute 0.08 Basophils Absolute 0.04 Immature Granulocytes Absolute 0.03 Narrative: Therapeutic decision making should be based on absolute values, rather than percentages. [facility] ANTIBODY ED PROTOCOL HIV 1/2 ANTIBODY/ANTIGEN SCREEN Narrative: The following orders were created for panel order ED Protocol - HIV 1/2 Antibody/Antigen Screen. Procedure Abnormality Status --------- ------ HIV 1 & 2 Antibody/Antig...[[id number]] In process Please view results for these tests on the individual orders. HIV 1/2 ANTIBODY/ANTIGEN SCREEN Rads: No orders to display MDM: Patient seen by the [facility] physician and followed-up by myself. In summary: NARRATIVE: Patient is a 21-year-old male who presents today with complaints of dental pain and initial significant trismus noted by Dr. Gilmore in triage. Patient states that he has been taking ???more Tylenol and ibuprofen and I showed?? but apparently has not been taking over 1000 mg of Tylenol daily and may be only 1-2 doses of ibuprofen. He has been told in the past that he has impacted wisdom teeth it is ultimately needs to see a dentist. Denies any drainage. Denies any swelling at this time. Due to trismus, IV, lab work, CT were ordered. Initial labs do reveal some leukocytosis, but otherwise nonactionable. CT of the soft tissue of the neck was ordered and pending at time of sign-out. Patient was more comfortable at time of sign-out after having received some morphine. Improvement of trismus notably. If scan is reassuring, could consider discharge if it is felt that his trismus was driven primarly by his dental pain. Clinical Impressions as of 10/26/222355 Pain, dental DIAGNOSIS Final diagnoses: [K08.89] Pain, dental Disposition: transfer of care to Jono Stoner PA-C Outpatient Rx Given: New Prescriptions No medications on file Orders Placed This Encounter Procedures CT Soft Tissue Neck w IV Contrast Hepatitis C Antibody - ED ED Protocol - HIV 1/2 Antibody/Antigen Screen CMP CBC w/diff HIV 1 & 2 Antibody/Antigen Screen Insert peripheral IV ED Medication Administration from 10/26/20222137 to 10/26/20222355 Date/Time Order Dose Route Action Action by 10/26/2022 2225 EST ketorolac (Toradol) injection 10 mg 10 mg Intravenous Given Peak, M 10/26/2022 2225 EST morphine PF 4 mg 4 mg Intravenous Given Peak, M 10/26/2022 2225 EST sodium chloride 0.9% infusion 1,000 mL 1,000 mL Intravenous New Bag Peak, M Bernie Lang PA-C EMR Dragon/Audit Officer disclaimer: Much of this encounter note is an electronic hand patcher of spoken language to printed text. Electronic hand patcher of spoken language may permit erroneous, or at times, nonsensical words or phrases to be inadvertently transcribed. Although I have reviewed the note for such errors, some may still exist. Please do not hesitate to reach out to me for clarification. VIKTOR Coats 10/26/222355 Cosigned by Chantel Gilmore MD at 10/29/2022 2:06 PM EST Associated attestation - Chantel Gilmore MD - 10/29/2022 2:06 PM EST I attest to being involved in more than half the total time in patient care. * ED Triage Notes - Samantha Ellison RN - 10/26/2022 9:38 PM EST Pt states he has severe right mouth pain. Pt states he was unable to get an apt with dental until December, but cannot wait until then d/t pain. * Progress Notes - Jono Stoner PA - 10/26/2022 9:38 PM EST I received sign-out and accepted care of this patient from the departing Drs: Bernie Lang PA-C and attending Dr. Gilmore at 0100. Please see the primary providers??? note for complete elements of the history, physical exam, and ED course. Illness Severity: Stable Patient Summary: Rogelio Castellano is a 21 y.o. male with a PMHx of No past medical history on file. presented to the ED with jaw pain. Has been on augmentin for 2 weeks. [facility] but could not [facility] that long. CT face obtained, showed dental root abscess with large carious deficit in mandibular molar. Multiple doses of pain medication given. Dentistry consulted, attempted to drain abscess. Some pain improvement with dental block. Ultimately needs [facility] for dental extraction. Referral given to [facility]. Rx for norco given. Rx for clinda given. Discharged home. Most recent vital signs: Visit Vitals BP (!) 138/95 Pulse 88 Temp 37.3 ??C (99.1 ??F) Resp 22 SpO2 100% Lab and imaging results: CT face with dental abscess and tooth impaction Action plan (To Do): Discharge with referral to [facility] Disposition: Home Clinical Impressions as of 10/27/22 0557 Pain, dental Dental abscess Tooth pain Cosigned by Chantel Gilmore MD at 10/29/2022 1:31 PM EST Associated attestation - Chantel Gilmore MD - 10/29/2022 1:31 PM EST I attest to being involved in more than half the total time in patient care. documented in this encounter Plan of Treatment Scheduled Referrals Name Type Priority Associated Diagnoses Order Schedule Discharge Ambulatory referral to Oral Maxillofacial Surgery Outpatient Referral Routine Pain, dental Expected: 10/27/2022 (Approximate), Expires: 04/27/2024 documented as of this encounter Procedures Procedure Name Priority Date/Time Associated Diagnosis Comments CT SOFT TISSUE NECK W IV CONTRAST STAT 10/27/2022 1:49 AM EST ED PROTOCOL HIV 1/2 ANTIBODY/ANTIGEN SCREEN W/REFLEX TO HIV 1/2 ANTIBODY DIFFERENTIATION STAT 10/26/2022 10:00 PM EST HIV 1/2 ANTIBODY/ANTIGEN SCREEN WITH REFLEX TO HIV I/II DIFFERENTIATION STAT 10/26/2022 10:00 PM EST HEPATITIS C ANTIBODY - ED W/REFLEX TO HCV QUANT PCR STAT 10/26/2022 10:00 PM EST CBC WITH AUTO DIFFERENTIAL STAT 10/26/2022 10:00 PM EST COMPREHENSIVE METABOLIC PANEL, PLASMA STAT 10/26/2022 10:00 PM EST documented in this encounter Results * CT Soft Tissue Neck w IV Contrast (10/27/2022 1:49 AM EST) Anatomical Region Laterality Modality Neck Computed Tomogra phy Impressions 10/27/2022 2:51 AM EST Large carious defect within the posterior right mandibular molar. Lucency surrounding this tooth root with cortical breakthrough at the inferior medial margin consistent with a tooth root abscesses that ruptured into the adjacent soft tissue Phlegmonous masslike infiltration surrounding the right mandible Small rim enhancing focus at the medial inferior medial margin of the right mandible for example image 37 series 602 consistent with a small subperiosteal abscesses Right submandibular and neck enhance lymphadenopathy, likely reactive. [Right level 1 and 2 adenopathy Additional dental caries noted. Mild right maxillary sinusitis probably related to dental disease. CRITICAL RESULT: No. COMMUNICATION: Per this written report. Approved by Celena Redmond DO on 10/27/2022 2:12 AM By electronically signing this report, I, the attending physician, attest that I have personally reviewed the images/data for the above examination(s) and agree with the final edited report. Dictated by Celena Redmond DO on 10/27/2022 2:12 AM Signed by Dea Huitron MD on 10/27/2022 2:51 AM Narrative 10/27/2022 2:51 AM EST Exam/Procedure: CT SOFT TISSUE NECK W IV CONTRAST ordered by CHANTEL GILMORE, [id number] CLINICAL INDICATION: dental pain, trismus, eval deep space infection TECHNIQUE: Helical images were obtained through the neck, and reconstructed in the axial plane on bone and soft tissue algorithm at multiple slice thicknesses. Coronal and sagittal reformatted images were created. 100 mL of Omnipaque 300 were administered intravenously. Total DLP (Dose-Length Product): 447.04 mGy.cm. Please note: The reported value represents the total of one or more individual components during the CT acquisition on this date and at this time, and as such, the same value may appear in more than one CT report depending on the interpreting/reporting physicians. COMPARISON: None. FINDINGS: Diagnostic Quality: Adequate. Soft Tissues: No masses are present within the soft tissues of the neck. Lymph Nodes: Increased number of lymph nodes with multiple enlarged lymph nodes in the right submandibular and neck measuring up to 1.4 cm in short axis (series 602, image 64). Pharynx/Larynx: No definite pharyngeal or laryngeal masses are present. Oral Cavity: Large carious defect within the posterior right mandibular molar. Tooth root abscess phlegmonous changes around the right mandible and a small subperiosteal abscess. No large masses are present within the oral cavity within the limitations of the study. Parapharyngeal Space: No lesions are present within the parapharyngeal space. Salivary Glands: The parotid and submandibular glands are normal in size without definite focal lesions. Thyroid: No focal thyroid lesions are present, within the limitations of the study. Orbits/Paranasal Sinuses/Skull Base: No orbital masses are present within the visualized portions of the orbits. Mild right maxillary sinus mucosal thickening. Otherwise, the remaining visualized paranasal sinuses are grossly clear. Within the skull base, there is no focal lesion or destructive process. Bones/Spine: No acute fracture. Thoracic Inlet and Lung Apices: The visualized lung apices are clear. Procedure Note Dea Huitron MD - 10/27/2022 Exam/Procedure: CT SOFT TISSUE NECK W IV CONTRAST ordered by HCANTEL AGUILAR, [id number] CLINICAL INDICATION: dental pain, trismus, eval deep space infection TECHNIQUE: Helical images were obtained through the neck, and reconstructed in theaxial plane on bone and soft tissue algorithm at multiple slicethicknesses. Coronal and sagittal reformatted images were created. 100 mLof Omnipaque 300 were administered intravenously. Total DLP (Dose-Length Product): 447.04 mGy.cm. Please note: The reportedvalue represents the total of one or more individual components during theCT acquisition on this date and at this time, and as such, the same valuemay appear in more than one CT report depending on theinterpreting/reporting physicians. COMPARISON: None. FINDINGS: Diagnostic Quality: Adequate. Soft Tissues: No masses are present within the soft tissues of the neck. Lymph Nodes: Increased number of lymph nodes with multiple enlarged lymphnodes in the right submandibular and neck measuring up to 1.4 cm in shortaxis (series 602, image 64). Pharynx/Larynx: No definite pharyngeal or laryngeal masses are present. Oral Cavity: Large carious defect within the posterior right mandibularmolar. Tooth root abscess phlegmonous changes around the right mandibleand a small subperiosteal abscess. No large masses are present within theoral cavity within the limitations of the study. Parapharyngeal Space: No lesions are present within the parapharyngealspace. Salivary Glands: The parotid and submandibular glands are normal in sizewithout definite focal lesions. Thyroid: No focal thyroid lesions are present, within the limitations ofthe study. Orbits/Paranasal Sinuses/Skull Base: No orbital masses are present withinthe visualized portions of the orbits. Mild right maxillary sinus mucosalthickening. Otherwise, the remaining visualized paranasal sinuses aregrossly clear. Within the skull base, there is no focal lesion ordestructive process. Bones/Spine: No acute fracture. Thoracic Inlet and Lung Apices: The visualized lung apices are clear. IMPRESSION: Large carious defect within the posterior right mandibular molar. Lucencysurrounding this tooth root with cortical breakthrough at the inferiormedial margin consistent with a tooth root abscesses that ruptured intothe adjacent soft tissue Phlegmonous masslike infiltration surrounding the right mandible Small rim enhancing focus at the medial inferior medial margin of theright mandible for example image 37 series 602 consistent with a smallsubperiosteal abscesses Right submandibular and neck enhancelymphadenopathy, likely reactive. [Right level 1 and 2 adenopathy Additional dental caries noted. Mild right maxillary sinusitis probably related to dental disease. CRITICAL RESULT: No. COMMUNICATION: Per this written report. Approved by Celena Redmond DO on 10/27/2022 2:12 AM By electronically signing this report, I, the attending physician, attestthat I have personally reviewed the images/data for the aboveexamination(s) and agree with the final edited report. Dictated by Celena Redmond DO on 10/27/2022 2:12 AM Signed by Dea Huitron MD on 10/27/2022 2:51 AM Chantel Gilmore MD IMG CT PROCEDURES Final Result * HIV 1 & 2 Antibody/Antigen Screen (10/26/2022 10:00 PM EST) Pathologist [facility] HIV 1 & 2 Antibody/Anti gen Screen Nonreactive Nonreactive 10/27/2022 12:06 AM EST [facility] Blood Venous blood specimen / Unknown Venipuncture / Unknown 10/26/2022 10:00 PM EST 10/26/2022 10:12 PM EST Chantel Gilmore MD LAB BLOOD ORDERABLES Final Res [facility] [address] [place] [address] * (ABNORMAL) CBC w/diff (10/26/2022 10:00 PM EST) Pathologist [facility] WBC Count 12.39(H) 3.70 - 10.30 10*3/uL LAB HEMATOLOGY METHOD 10/26/2022 10:06 PM [facility] RBC Count 5.64 4.60 - 6.10 10*6/uL LAB HEMATOLOGY METHOD 10/26/2022 10:06 PM [facility] HGB 16.4 13.7 - 17.5 g/dL LAB HEMATOLOGY METHOD 10/26/2022 10:06 PM [facility] HCT 48.7 40.0 - 51.0 % LAB HEMATOLOGY METHOD 10/26/2022 10:06 PM [facility] Platelet Count 306 155 - 369 10*3/uL LAB HEMATOLOGY METHOD 10/26/2022 10:06 PM [facility] MCV 86 79 - 98 fL LAB HEMATOLOGY METHOD 10/26/2022 10:06 PM [facility] MCH 29.1 26.0 - 32.0 pg LAB HEMATOLOGY METHOD 10/26/2022 10:06 PM [facility] MCHC 33.7 30.7 - 35.5 g/dL LAB HEMATOLOGY METHOD 10/26/2022 10:06 PM [facility] RDW 12.0 11.5 - 14.5 % LAB HEMATOLOGY METHOD 10/26/2022 10:06 PM [facility] MPV 9.4 8.8 - 12.5 fL LAB HEMATOLOGY METHOD 10/26/2022 10:06 PM [facility] nRBC 0.0 <=0.0 per 100 WBCs LAB HEMATOLOGY METHOD 10/26/2022 10:06 PM [facility] Differential Type Automated LAB HEMATOLOGY METHOD 10/26/2022 10:06 PM [facility] Neutrophils % 74.0 % LAB HEMATOLOGY METHOD 10/26/2022 10:06 PM [facility] Lymphocytes % 15.0 % LAB HEMATOLOGY METHOD 10/26/2022 10:06 PM [facility] [facility] Monocytes % 10.0 % LAB HEMATOLOGY METHOD 10/26/2022 10:06 PM [facility] Eosinophils % 1.0 % LAB HEMATOLOGY METHOD 10/26/2022 10:06 PM [facility] Basophils % 0.0 % LAB HEMATOLOGY METHOD 10/26/2022 10:06 PM [facility] Immature Granulocytes % 0.0 % LAB HEMATOLOGY METHOD 10/26/2022 10:06 PM [facility] Neutrophils Absolute 9.17(H) 1.60 - 6.10 10*3/uL LAB HEMATOLOGY METHOD 10/26/2022 10:06 PM EST [facility] Lymphocytes Absolute 1.88 1.20 - 3.90 10*3/uL LAB HEMATOLOGY METHOD 10/26/2022 10:06 PM EST [facility] Monocytes Absolute 1.19(H) 0.30 - 0.90 10*3/uL LAB HEMATOLOGY METHOD 10/26/2022 10:06 PM EST [facility] Eosinophils Absolute 0.08 0.00 - 0.50 10*3/uL LAB HEMATOLOGY METHOD 10/26/2022 10:06 PM EST [facility] Basophils Absolute 0.04 0.00 - 0.10 10*3/uL LAB HEMATOLOGY METHOD 10/26/2022 10:06 PM EST [facility] Immature Granulocytes Absolute 0.03 0.00 - 0.06 10*3/uL LAB HEMATOLOGY METHOD 10/26/2022 10:06 PM EST [facility] Blood Venous blood specimen / Unknown Venipuncture / Unknown 10/26/2022 10:00 PM EST 10/26/2022 10:04 PM EST Narrative [facility] - 10/26/2022 10:06 PM EST Therapeutic decision making should be based on absolute values, rather than percentages. us Chantel Gilmore MD LAB BLOOD ORDERABLES Final Res ult [facility] [address] [place], [place] [id number] * (ABNORMAL) CMP (10/26/2022 10:00 PM EST) Glucose, Plasma 111(H) 74 - 99 mg/dL 10/26/2022 10:27 PM EST [facility] BUN, Plasma 15 7 - 21 mg/dL 10/26/2022 10:27 PM EST [facility] Creatinine, Plasma 1.02 0.80 - 1.30 mg/dL 10/26/2022 10:27 PM EST [facility] BUN/Creatinine Ratio 15 10/26/2022 10:27 PM EST [facility] Sodium, Plasma 141 136 - 145 mmol/L 10/26/2022 10:27 PM EST [facility] Potassium, Plasma 3.8 3.7 - 4.8 mmol/L 10/26/2022 10:27 PM EST [facility] Comment:Reference range for Serum potassium is 0.2 to 0.5 mmol/L higher than Plasma range. Chloride, Plasma 94(L) 97 - 107 mmol/L 10/26/2022 10:27 PM EST [facility] CO2, Plasma 30(H) 22 - 29 mmol/L 10/26/2022 10:27 PM EST [facility] Anion Gap 17(H) 6 - 16 mmol/L 10/26/2022 10:27 PM EST [facility] Comment:Unable to calculate, at least one value is above or below the detection limit. Total Calcium, Plasma 10.2 8.9 - 10.2 mg/dL 10/26/2022 10:27 PM EST [facility] Total Protein 8.9(H) 6.3 - 7.9 g/dL 10/26/2022 10:27 PM EST [facility] Albumin, Plasma 4.5 3.5 - 5.2 g/dL 10/26/2022 10:27 PM EST [facility] AST, Plasma 14 12 - 40 U/L 10/26/2022 10:27 PM EST [facility] ALT, Plasma 20 11 - 41 U/L 10/26/2022 10:27 PM EST [facility] Alkaline Phosphatase, Plasma 107 40 - 115 U/L 10/26/2022 10:27 PM EST [facility] Total Bilirubin, Plasma 0.5 0.2 - 1.1 mg/dL 10/26/2022 10:27 PM EST [facility] eGFRcr 106.6 mL/min/1.7 3m*2 10/26/2022 10:27 PM EST [facility] Comment: Reported eGFRcr in mL/min/1.73m2 is based the CKD-EPI 2021 equation that does not use a race coefficient. Effective 06/10/22 our laboratory changed the eGFR calculation to the CKD-EPI 2021 equation from the previously reported eGFR, based on the MDRD equation. ??For comparisons between the two equations, please see laboratory website: ??[email or web address] Blood Venous blood specimen / Unknown Venipuncture / Unknown 10/26/2022 10:00 PM EST 10/26/2022 10:04 PM EST us Chantel Gilmore MD LAB BLOOD ORDERABLES Final Res ult [facility] [address] [place] [address] * Hepatitis C Antibody - ED (10/26/2022 10:00 PM EST) Hepatitis C Antibody Negative Negative 10/27/2022 12:08 AM EST [facility] Blood Venous blood specimen / Unknown Venipuncture / Unknown 10/26/2022 10:00 PM EST 10/26/2022 10:12 PM EST Chantel Gilmore MD LAB BLOOD ORDERABLES Final Res ult Performing Organization Address [facility] Co de Phone Number [facility] [address] [place] [address] documented in this encounter Visit Diagnoses Diagnosis Pain, dental- Primary Dental abscess Periapical abscess without sinus Tooth pain Unspecified disorder of the teeth and supporting structures documented in this encounter Administered Medications Inactive Administered Medications - up to 3 most recent administrations Medication Order MAR Action Action Date Dose Rate Site iohexol (OMNIPaque) 350 MG/ML injection 100 mL 100 mL, Intravenous, Once in imaging, 1 dose, Starting on Wed10/27/22 at 0137, Until Wed10/27/22 at 0138, Routine, Imaging Protocol Orders Given 10/27/2022 1:38 AM EST 100 mL ketorolac (Toradol) injection 10 mg 10 mg, Intravenous, Once, 1 dose, On Wed10/26/22 at 2155, STAT Given 10/26/2022 10:25 PM EST 10 mg morphine PF 4 mg 4 mg, Intravenous, Once, 1 dose, On Wed10/26/22 at 2155, STAT Given 10/26/2022 10:25 PM EST 4 mg morphine PF 4 mg 4 mg, Intravenous, Once, 1 dose, On Wed10/27/22 at 0155, STAT Given 10/27/2022 2:01 AM EST 4 mg morphine PF 4 mg 4 mg, Intravenous, Once, 1 dose, On Wed10/27/22 at 0455, STAT Given 10/27/2022 4:57 AM EST 4 mg oxyCODONE (Roxicodone) immediate release tablet 5 mg 5 mg, Oral, Once, 1 dose, On Wed10/27/22 at 0330, STAT Given 10/27/2022 3:31 AM EST 5 mg sodium chloride 0.9% infusion 1,000 mL 1,000 mL, Intravenous, Once, 1 dose, On Wed10/26/22 at 2155, STAT New Bag 10/26/2022 10:25 PM EST 1,000 mL documented in this encounter Active and Recently Administered Medications Times are shown in EST. Scheduled Medication Order 10/25/2022 10/26/2022 10/27/2022 iohexol (OMNIPaque) 350 MG/ML injection 100 mL (COMPLETED) 100 mL, Intravenous, Once in imaging, 1 dose, Starting on Wed10/27/22 at 0137, Until Wed10/27/22 at 0138, Routine, Imaging Protocol Orders 0138 (Given - Provid er: Dwayne Howe) ketorolac (Toradol) injection 10 mg (COMPLETED) 10 mg, Intravenous, Once, 1 dose, On Wed10/26/22 at 2155, STAT 2225 (Given - Provider: Haydee Johnson RN) morphine PF 4 mg (COMPLETED) 4 mg, Intravenous, Once, 1 dose, On Wed10/26/22 at 2155, STAT 2225 (Given - Provider: Haydee Johnson RN) morphine PF 4 mg (COMPLETED) 4 mg, Intravenous, Once, 1 dose, On Wed10/27/22 at 0155, STAT 0201 (Given - Provid er: Haydee Johnson RN) morphine PF 4 mg (COMPLETED) 4 mg, Intravenous, Once, 1 dose, On Wed10/27/22 at 0455, STAT 0457 (Given - Provid er: Melida Juárez RN) oxyCODONE (Roxicodone) immediate release tablet 5 mg (COMPLETED) 5 mg, Oral, Once, 1 dose, On Wed10/27/22 at 0330, STAT 0331 (Given - Provid er: Denia Meier RN) sodium chloride 0.9% infusion 1,000 mL (COMPLETED) 1,000 mL, Intravenous, Once, 1 dose, On Wed10/26/22 at 2155, STAT 2225 (New Bag - Provider: Haydee Johnson RN) 0004 (Stopped - Provider: Haydee Peak, RN) documented in this encounter Care Teams Seafood Specialist Relationship Specialty Start Date End Date Jim Aranda MD [address] [place] [address] PCP - General 03/28/21 documented as of this encounter
--- OUTSIDE RECORDS SUMMARY | 2024-10-05 21:44 | XMS_ITS | Encounter Summary ---
Author Organization Healthcare Address [address] [place] [address] Care Team Providers Care Retirement Consultant Name Role Phone Jim Aranda MD Primary Care Provider [phone] Encounter Details Date Type Department Care Team (Latest Contact Info) Description 10/30/2022 Travel Social History Tobacco Use Types Packs/Day [...] on filedocumented in this encounter Care Teams Retirement Consultant Relationship Specialty Start Date End Date Jim Aranda MD [address] [place] [address] PCP - General 03/28/21 documented as of this encounter
--- OUTSIDE RECORDS SUMMARY | 2024-10-05 21:44 | XMS_ITS | Clinical Summary ---
Author Organization Healthcare Address [address] [place] [address] Care Team Providers Care Broodmare Foreman Name Role Phone Jim Aranda MD Primary Care Provider [phone] Allergies No known active allergies Medications HYDROcodone-acet aminophen ([place]) 5-325 MG tablet Take 1 tablet by mouth every 4 (four) hours if needed for severe pain. 18 tablet 10/27/2022 Active acetaminophen (Tylenol) 500 MG tablet Take 1 tablet (500 mg total) by mouth every 6 (six) hours if needed for fever or headaches. 20 tablet 10/30/2022 Active Social History Tobacco Use Types Packs/Day Years Used Date Smoking Tobacco: Never Assessed Sex and Gender Information Value Date Recorded Sex Assigned at Not on file Legal Sex Male 8:47 PM EDT Gender Identity Not on file Sexual Orientation Not on file Last Filed Vital Signs Vital Sign Reading Time Taken Comments Blood Pressure 161/97 10/30/2022 1:17 PM EST Pulse 98 10/30/2022 1:17 PM EST Temperature 36.9 ??C (98.5 ??F) 10/27/2022 6:04 AM ES T Respiratory Rate 18 10/27/2022 6:04 AM EST Oxygen Saturation 98% 10/27/2022 6:04 AM EST Inhaled Oxygen Concentration - - Weight 67.9 kg (149 lb 11.1 oz) 10/30/2022 1:04 PM EST Height 167.6 cm (5' 6 ) 10/30/2022 1:04 PM EST Body Mass Index 24.16 10/30/2022 1:04 PM EST Plan of Treatment Health Maintenance Due Date Last Done Comments Dental Prophylaxis 1999 Dental X-Ray: Bitewings 1999 [facility]-Depression Screening 1999 [facility]-Infant/Child/Adol SDOH Screenings 1999 [facility]-HPV Vaccines (3 - Male 3-dose series) 03/12/2017 10/16/2016, 09/11/2016 [facility]- SDOH Screenings 2017 [facility]-Adult SDOH Screenings 2017 [facility]-Hepatitis A Vaccines (2 of 2 - 2-dose series) 04/12/2018 10/13/2017 [facility]-DTaP,Tdap,and Td Vaccines (2 - Td or Tdap) 06/08/2021 06/08/2011 Dental Oral Exam 04/30/2023 10/29/2022 [id number] Vaccine (1 - season) 2024 [facility]-Influenza Vaccine (#1) 2024 09/11/2016 Dental X-Ray: Full Mouth 10/30/2025 10/29/2022 [facility]-Zoster Vaccines (1 of 2) 12/23/204909/2001, 12/24/2000 [facility]-RSV Vaccine: 60+ Years or (1 - 1-dose 75+ series) 2074 [facility]-Hepatitis B Vaccines Completed 001, 02/23/2000, 1999 [facility]-Varicella Vaccines Completed 1, 12/24/2000 [facility]-HIV Screening Completed 10/26/2022, 10/26/2022 [facility]-Hepatitis C Screening Completed 10/26/2022 [facility]-HIB Vaccines Aged Out No longer e ligible based on patient's age to complete this topic [facility]-IPV Vaccines Aged Out No longer e ligible based on patient's age to complete this topic [facility]Pneumococcal Vaccine: Pediatrics (0 to 5 Years) and At-Risk Patients (6 to 64 Years) Aged Out No longer eligible b ased on patient's age to complete this topic [facility]-Rotavirus Vaccines Aged Out No lo nger eligible based on patient's age to complete this topic Procedures Procedure Name Priority Date/Time Associated Diagnosis Comments PANORAMIC RADIOGRAPHIC IMAGE Routine 10/29/2022 2:30 PM EST Pain, dental COMPREHENSIVE ORAL EVALUATION - NEW OR ESTABLISHED PATIENT Routine 10/29/2022 2:30 PM EST Pain, dental HEPATITIS C ANTIBODY - ED W/REFLEX TO HCV QUANT PCR STAT 10/26/2022 10:00 PM EST HIV 1/2 ANTIBODY/ANTIGEN SCREEN WITH REFLEX TO HIV I/II DIFFERENTIATION STAT 10/26/2022 10:00 PM EST from Last 3 Months or Most Recently Relevant to Health Maintenance Results * HIV 1 & 2 Antibody/Antigen Screen (10/26/2022 10:00 PM EST) HIV 1 & 2 Antibody/Anti gen Screen Nonreactive Nonreactive 10/27/2022 12:06 AM EST [facility] Blood Venous blood specimen / Unknown Venipuncture / Unknown 10/26/2022 10:00 PM EST 10/26/2022 10:12 PM EST Chris Gilmore MD LAB BLOOD ORDERABLES Final Res ult [facility] [address] [place] [address] * Hepatitis C Antibody - ED (10/26/2022 10:00 PM EST) Hepatitis C Antibody Negative Negative 10/27/2022 12:08 AM EST [facility] Blood Venous blood specimen / Unknown Venipuncture / Unknown 10/26/2022 10:00 PM EST 10/26/2022 10:12 PM EST Chris Gilmore MD LAB BLOOD ORDERABLES Final Res ult [facility] [address] [place] [address] from Last 3 Months or Most Recently Relevant to Health Maintenance Insurance [id number] MEDICAID [employer] MEDICAID Care Teams Broodmare Foreman Relationship Specialty Start Date End Date Jim Aranda MD [address] [place] [id number] PCP - General 03/28/21
--- OUTSIDE RECORDS SUMMARY | 2024-10-05 21:44 | XMS_ITS | Encounter Summary ---
Author Organization Healthcare Address [address] [place] [address] Care Team Providers Care C Java Developer Name Role Phone Jim Aranda MD Primary Care Provider [phone] Reason for Visit * Consultation (Routine) - Closed Specialty Diagnoses / Procedures Referred By Contac t Referred To Contact Oral Surgery Diagnoses Pain, dental Jono Stoner PA [address] [place] [address] Phone: tel: fax: [facility] [address] [place] [address] [address] [place] [address] Phone: tel: Referral ID Status Reason Start Date Expiration Date V isits Requested Visits Authorized [id number] Closed Specialty Services Required 10/27/2022 04/27/2024 1 1 Encounter Details Date Type Department Care Team (Late st Contact Info) Description 10/29/2022 2:30 PM EST Evaluation [facility] [address] [address] Larissa Carrillo DMD [address] [place] [address] Pain, dental Social History Tobacco Use Types Packs/Day Years [...] Sign Reading Time Taken Comments Blood Pressure 160/107 10/29/2022 2:51 PM EST Pulse - - Temperature - - Respiratory Rate - - Oxygen Saturation - - Inhaled Oxygen Concentration - - Weight 68 kg (149 lb 14.6 oz) 10/29/2022 2:51 PM EST Height 167.6 cm (5' 6 ) 10/29/2022 2:51 PM EST Body Mass Index 24.2 10/29/2022 2:51 PM EST documented in this encounter Miscellaneous Notes * Progress Notes - Larissa Carrillo DMD - 10/29/2022 2:30 PM EST Oral & Maxillofacial Surgery Consult CC: ???I need to have oral surgery.?? HPI: Rogelio Castellano is a 21 y.o. male who presents with trismus for evaluation and treatment of# 1,15,16,17,32 for EXT. Pt has been in the ED on 10-27-2022 for severe pain associated with #32. Pt is currently on Clindamycin and Hydrocodone from ED. Has discussed restorability with general dentist. Desires dental extractions. Denies f/c/n/v. Reports severe discomfort on palpation below the margin of mandible. Review of Systems: Negative except for HPI and PMH. > 4 METS PMH: Denies PSH: Denies Meds: Current Outpatient Medications Medication Instructions clindamycin (CLEOCIN) 300 mg, Oral, 3 times daily HYDROcodone-acetaminophen ([place]) 5-325 MG tablet 1 tablet, Oral, Every 4 hours PRN ALL: No Known Allergies Social Hx: Reports smoking a pack a day for 10 years . Denies alcohol or illicit drug use. Social Connections: Not on file Physical Exam: Vitals: 10/29/22 1451 BP: (!) 160/107 GEN: no apparent distress, well nourished HEAD/FACE: NCAT, no facial or neck swellings TMD>3fb ORAL: ELINOR: <10mm , not able to do intra oral evaluation due to severe trismus, unable to assess MP score EYES: no scleral icterus, no visible conjunctival hemorrhage RESP: no respiratory distress, symmetric chest rise CV: appears well perfused, normal rate MSK/EXT: no apparent deformities, strength/tone normal : deferred NEURO: alert and oriented, no focal CN deficits PSYCH: appropriate affect, mood congruent, interactive Imaging: Type: Panoramic Date: 10-29-2022 Radiographic Indication: Treatment Planning Radiographic Interpretation/Findings: Condyles seated bilaterally. Sinuses clear & symmetrical bilaterally. Normal trabeculation pattern. # 1,15,32 with caries, #16,17 impacted Assessment/Plan: ASA 1 - Normal health patient Unable to assess MP score BMI:24.20 W: 68 kg H:5'6 Rogelio Castellano is a 21 y.o. male who presents with carious and symptomatic #32 . Patient would benefit from dental extraction. Pt can barely open his mouth and reports extreme pain associated with #32. Due to severe trismus, decision was made to get the Pt on the schedule tomorrow for surgical extraction of #32 (and possibly #1) under IV sedation, if it is feasible to open Pt's mouth enough to have access to the airway. #15,16,17 will be addressed at a later time. -Discussed Risks, benefits, alternatives of treatment and answered all questions. -Discussed NPO at OR and escort. -Schedule for EXT # 32 (and possibly #1) under IV sedation Cosigned by Shahram Mendez DMD at 10/29/2022 4:28 PM EST Associated attestation - Shahram Mendez DMD - 10/29/2022 4:28 PM EST I saw and evaluated the patient, discussed with the Resident, and agree with Resident's findings, radiographic interpretations, and plan as documented in the note. documented in this encounter Plan of Treatment Not on file documented as of this encounter Procedures Procedure Name Priority Date/Time Associated Diagnosis Comments PANORAMIC RADIOGRAPHIC IMAGE Routine 10/29/2022 2:30 PM EST Pain, dental COMPREHENSIVE ORAL EVALUATION - NEW OR ESTABLISHED PATIENT Routine 10/29/2022 2:30 PM EST Pain, dental documented in this encounter Visit Diagnoses Diagnosis Pain, dental documented in this encounter Care Teams C Java Developer Relationship Specialty Start Date End Date Jim Aranda MD [address] [place] [address] PCP - General 03/28/21 documented as of this encounter
[2024-10-05] MEDS: LIDOCAINE 2% VISCOUS SOL 15ML UDC 15 ML PO (21:59)
[2024-10-05] MEDS: AMOXICILLIN/CLAVULANATE POTASSIUM 875/125MG TABLET 1 EACH PO (21:59)
[2024-10-05 22:04] VITALS: BP 155/84; PULSE 85; RESP 20; TEMP 36.8; O2SAT 100
== END 2024-10-05 22:10 | disposition home or self-care (01) ==
PROVIDERS: Emergency Provider Emergency Medicine
DX: K04.7 Periapical abscess without sinus (principal); K08.89 Other specified disorders of teeth and supporting structures
CPT/HCPCS: 99283